=== PATIENT | female | born 1960 | race Caucasian/White ===

== ENCOUNTER 2017-03-02 14:16 | Emergency (ER) | payer OTHER ==
[~2017-03-02] VITALS: Ht 160 cm; Wt 84.8 kg
[~2017-03-02 14:16] MED LIST: BENADRYL25 MG ORAL; BUPROPION HCL100 MG ORAL; IBUPROFEN600 MG ORAL; IBUPROFEN600 MG PO; METFORMIN HCL1000 M1 ORAL; UNOBMED; VICODIN 5-5001 EACH PO
[2017-03-02 14:29] VITALS: BP 134/88
[2017-03-02] MEDS ORDERED: Ketorolac 60mg Inj IM ONE (14:45)
[2017-03-02] MEDS ORDERED: ROBAXIN-750750 MG PO (16:16)
[2017-03-02 16:34] VITALS: BP 127/74
--- NOTE | 2017-03-02 17:40 | Emergency Room Report ---
History of Present Illness General Chief Complaint: Pain Source: Patient, Medical Record Present Illness HPI Patient present with complaints of pain to the left hand with radiation going up to the forearm and the upper arm Patient however also reports that time chest pain from the upper arm down to the hand Patient reports previous neck problems and injuries However the pain in the left arm has worsened over the past several weeks Patient was seen at [facility] recently had neck x-rays obtained patient also shows records indicating receiving morphine At this time she states that she was told at [facility] that they do not accept her insurance In the for the patient presented here for an MRI Denies any weakness has mainly pain 6/10 sharp and tingling Denies any other fall or trauma denies any chest pain or short of breath Allergies: Coded Allergies: No Known Allergies (Unverified , 08/18/12) Patient History Past Medical History: see triage record Pertinent Family History: none Reviewed Nursing Documentation: PMH: Agreed, PSxH: Agreed Nursing Documentation-PMH Hx Diabetes: Yes Review of Systems All Other Systems: negative except mentioned in HPI Physical Exam Vital Signs Date Time Temp Pulse Resp B/P Pulse Ox O2 Delivery O2 Flow Rate FiO2 03/02/17 14:19 98.1 105 16 134/88 99 Room Air Sp02 EP Interpretation: reviewed, normal General Appearance: well appearing, no apparent distress Head: normocephalic, atraumatic Eyes: bilateral eye EOMI, bilateral eye PERRL ENT: hearing grossly normal, normal pharynx, TMs + canals normal, uvula midline Neck: full range of motion, supple, no meningismus, no bony tend Respiratory: lungs clear, normal breath sounds, no rhonchi, no respiratory distress, no retraction, no accessory muscle use Cardiovascular #1: normal peripheral pulses, regular rate, rhythm, no edema, no gallop, no JVD, no murmur Gastrointestinal: normal bowel sounds, non tender, soft, no mass, no organomegaly, non-distended, no guarding, no hernia, no pulsatile mass, no rebound Genitourinary: no CVA tenderness Musculoskeletal: normal inspection - 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, subjectively has sharp shooting pain in the left hand palmar and dorsal aspect left forearm, Neurologic: oriented x3, responsive, 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 nml as tested, motor strength/ tone normal, sensory intact Psychiatric: mood/affect normal Skin: normal color, no rash, warm/dry, palpation normal Lymphatic: normal inspection, no adenopathy Medical Decision Making Diagnostic Impression: Primary Impression: radiculopathy ER Course Given the patient's complaints multiple differentials considered I did obtain ultrasound for evaluation of vascular pathology which was normal EKG and rhythm strip also within normal limits Patient reports that she has had visited by her primary physician previously She is working on an outpatient clearance for MRI At this time there is no emergency criteria meeting MRI criteria The patient requires close outpatient followup Rhythm Strip Diag. Results EP Interpretation: yes Rate: 77 Rhythm: NSR, no PVC's, no ectopy CT/MRI/US Diagnostic Results CT/MRI/US Diagnostic Results : Impression Left upper extremities ultrasound: No acute disease Last Vital Signs Date Time Temp Pulse Resp B/P Pulse Ox O2 Delivery O2 Flow Rate FiO2 03/02/17 16:34 86 16 127/74 99 Room Air 03/02/17 16:24 98.1 Status: improved Disposition: HOME, SELF-CARE Condition: Improved Scripts Methocarbamol* (ROBAXIN-750*) 750 Mg Tablet 750 MG PO TID, #21 TAB 0 Refills Prov: EBONI STEVENSON D.O. 03/02/17 Referrals: LORRAINE MCDONNELL (PCP) Patient Instructions: Cervical Radiculopathy Additional Instructions: Patient is provided with the discharge instructions notified to follow up with primary doctor in the next 2-3 days otherwise return to the er with any worsening symptoms. Please note that this report is being documented using DRAGON technology. This can lead to erroneous entry secondary to incorrect interpretation by the dictating instrument. EBONI STEVENSON D.O. March 02, 2017 17:40
== END 2017-03-02 16:34 | disposition home or self-care (01) ==
LOC: EMR 14:40
DX: M54.10 Radiculopathy, site unspecified (principal); M79.642 Pain in left hand; M79.89 Other specified soft tissue disorders; E11.9 Type 2 diabetes mellitus without complications
CPT/HCPCS: 93005; 93971; 96372; 99284

== ENCOUNTER 2019-01-17 12:32 | Emergency (ER) | payer OTHER ==
[~2019-01-17] VITALS: Ht 160 cm; Wt 86.2 kg
[~2019-01-17 12:32] MED LIST changes: +ROBAXIN-750750 MG PO
[2019-01-17 12:34] VITALS: BP 118/75
--- NOTE | 2019-01-17 12:40 | NUR ---
ED Nurse Note: patient walked into ED patient states she wants to get checked for LEFT earache that's been there for 3 days. patient is alert awake x4, ambulatory steady gait. in no acute distress.
--- NOTE | 2019-01-17 12:55 | Emergency Room Report ---
History of Present Illness General Chief Complaint: Earache Source: Patient Present Illness HPI Patient presents with reports that she had recent dental procedure done on the left back molar area Since then now she has been having increased pain to the left jaw She feels increased discomfort with trying to open and close the area she has spoken to a specialist and primary physician who recommended she should likely have a CT imaging Denies any other obvious trismus denies any neck pain or photophobia Allergies: Coded Allergies: No Known Allergies (Unverified , 08/18/12) Patient History Past Medical History: see triage record Pertinent Family History: none Now: No Reviewed Nursing Documentation: PMH: Agreed; PSxH: Agreed Nursing Documentation-PMH Past Medical History: No History, Except For Hx Diabetes: Yes Review of Systems All Other Systems: negative except mentioned in HPI Physical Exam Vital Signs Date Time Temp Pulse Resp B/P (MAP) Pulse Ox O2 Delivery O2 Flow Rate FiO2 01/17/19 12:34 98.1 72 20 118/75 96 Room Air Sp02 EP Interpretation: reviewed, normal General Appearance: well appearing, no apparent distress Head: normocephalic, atraumatic Eyes: bilateral eye PERRL, bilateral eye EOMI ENT: hearing grossly normal, normal pharynx, other - Some discomfort to the lower angle of the mandible on the left side Neck: supple Respiratory: lungs clear, normal breath sounds Cardiovascular #1: regular rate, rhythm Gastrointestinal: non tender, soft Musculoskeletal: normal inspection, back normal Neurologic: alert, oriented x3 Skin: normal color, no rash Lymphatic: no adenopathy Medical Decision Making Diagnostic Impression: Primary Impression: TMJ capsulitis Additional Impression: Jaw pain ER Course Given the patient's history and presentation and complaints imaging studies was obtained Does not show any obvious acute dislocation or fracture Patient is stable for continued close outpatient follow-up CT/MRI/US Diagnostic Results CT/MRI/US Diagnostic Results : Impression CT facialImpression: No acute abnormality. No findings to explain stated clinical history of jaw pain Last Vital Signs Date Time Temp Pulse Resp B/P (MAP) Pulse Ox O2 Delivery O2 Flow Rate FiO2 01/17/19 12:34 98.1 73 20 118/75 96 Room Air Status: improved Disposition: HOME, SELF-CARE Condition: Improved Additional Instructions: Patient is provided with the discharge instructions notified to follow up with primary doctor in the next 2-3 days otherwise return to the er with any worsening symptoms. Please note that this report is being documented using DRAGON technology. This can lead to erroneous entry secondary to incorrect interpretation by the dictating instrument. Lana Sequeira DO Jan 17, 2019 12:55
--- NOTE | 2019-01-17 13:18 | NUR ---
ED Nurse Note: cassandra went down for CT
--- NOTE | 2019-01-17 13:47 | Diagnostic Imaging Report ---
Indications: Increased pain to the left jaw after recent dental surgery Technique: Spiral images obtained through the facial bones. No IV contrast utilized. Multiplanar reconstructions were generated.Total dose length product 583.07 mGycm. CTDIvol(s) 28.19 mGy. Dose reduction achieved using automated exposure control Comparison: none Findings: There is evidence of prior extraction of all 3 left mandibular molars. No evidence of mandibular osteolytic lesion demonstrated. No evidence of significant adjacent soft tissue swelling. There is evidence of prior extraction of the second and third maxillary molars. No underlying osteolytic lesions. No worrisome sinus opacification. The sinuses are clear. The frontal sinuses are aplastic. The optic globes appear intact. The retroseptal orbits appear intact. The included intracranial structures are unremarkable. The upper aerodigestive tract appears unremarkable. The salivary glands are unremarkable. No facial mass or adenopathy. No evidence of facial fracture. The nasal septum is midline and intact. Impression: No acute abnormality. No findings to explain stated clinical history of jaw pain The CT scanner at [facility] is accredited by the [employer] and the scans are performed using protocols designed to limit radiation exposure to as low as reasonably achievable to attain images of sufficient resolution adequate for diagnostic evaluation.
[2019-01-17 14:14] VITALS: BP 118/75
--- NOTE | 2019-01-17 14:15 | NUR ---
ER DISCHARGE NOTE: Patient is cleared to be discharged per ERMD, pt is aox4, on room air, with stable vital signs. pt was given dc and prescription instructions, pt was able to verbalize understanding, pt id band removed without complications. pt is able to ambulate with steady gait. pt took all belongings.
== END 2019-01-17 14:13 | disposition home or self-care (01) ==
LOC: EMR 12:55
DX: M26.69 Other specified disorders of temporomandibular joint (principal); M77.8 Other enthesopathies, not elsewhere classified; R68.84 Jaw pain; E11.9 Type 2 diabetes mellitus without complications
CPT/HCPCS: 70486; 99284

== ENCOUNTER 2019-07-21 01:24 | Emergency (ER) | payer OTHER ==
[~2019-07-21] VITALS: Ht 165.1 cm; Wt 90.7 kg
--- NOTE | 2019-07-21 01:52 | Emergency Room Report ---
History of Present Illness General Chief Complaint: Abdominal Pain Source: Patient Present Illness HPI 59-year-old female with history of diabetes. She presents with chief complaint of abdominal pain. Onset for the last 3 days. Pain is mostly suprapubic area rating bilaterally. Does have increasing urination and frequency. Also with urgency and hematuria. Saw her doctor yesterday and was prescribed Cipro. Not getting better. No relief with ibuprofen. Pain is 9 out of 10. Worse with urination. No fever chills but no nausea vomiting or diarrhea. Allergies: Coded Allergies: No Known Allergies (Unverified , 08/18/12) Patient History Past Medical History: see triage record, old chart reviewed, DM Past Surgical History: other Pertinent Family History: none Social History: Denies: smoking Last Menstrual Period: na Now: No Immunizations: other Reviewed Nursing Documentation: PMH: Agreed; PSxH: Agreed Nursing Documentation-PMH Hx Diabetes: Yes Review of Systems Eye: Denies: eye pain, blurred vision ENT: Denies: ear pain, nose congestion, throat swelling Respiratory: Denies: cough, shortness of breath Cardiovascular: Denies: chest pain, palpitations Gastrointestinal: Denies: abdominal pain, diarrhea, nausea, vomiting Genitourinary: Reports: dysuria, frequency, hematuria, urgency Musculoskeletal: Denies: back pain, joint pain Skin: Denies: rash Neurological: Denies: headache, numbness Endocrine: Denies: increased thirst, increased urine Hematologic/Lymphatic: Denies: easy bruising All Other Systems: negative except mentioned in HPI Physical Exam Vital Signs Date Time Temp Pulse Resp B/P (MAP) Pulse Ox O2 Delivery O2 Flow Rate FiO2 07/21/19 01:30 98.8 77 16 139/80 (99) 96 Room Air Vitals unremarkable Sp02 EP Interpretation: reviewed, normal General Appearance: well appearing, no apparent distress, alert Head: normocephalic, atraumatic Eyes: bilateral eye PERRL, bilateral eye EOMI ENT: hearing grossly normal, normal pharynx Neck: full range of motion, supple, no meningismus Respiratory: chest non-tender, lungs clear, normal breath sounds Cardiovascular #1: regular rate, rhythm, no murmur Gastrointestinal: normal bowel sounds, no mass, no organomegaly, no bruit, non- distended, tenderness - Suprapubic Musculoskeletal: back normal, gait/station normal, normal range of motion Psychiatric: mood/affect normal Medical Decision Making Diagnostic Impression: Primary Impression: UTI (urinary tract infection) Qualified Codes: N30.01 - Acute cystitis with hematuria Additional Impression: Abdominal pain Qualified Codes: R10.30 - Lower abdominal pain, unspecified ER Course Patient presents with symptoms consistent with UTI/cystitis. She does have hematuria. CT scan is negative for hydronephrosis or kidney stone. She may have passed a small kidney stone. She does have mild prominence of the ureter right greater than left. Appendix is normal. Pain is improved. I gave her Rocephin here. She was taking Cipro but I suspect this resistant to it. Will change antibiotics. CT/MRI/US Diagnostic Results CT/MRI/US Diagnostic Results : Imaging Test Ordered: CT abdomen and pelvis Impression Read by radiologist. No evidence of hydronephrosis or perinephric stranding. No definitive ureteral stone seen. Normal appendix. Last Vital Signs Date Time Temp Pulse Resp B/P (MAP) Pulse Ox O2 Delivery O2 Flow Rate FiO2 07/21/19 01:30 98.8 77 16 139/80 (99) 96 Room Air Status: improved Disposition: HOME, SELF-CARE Condition: Stable Scripts Cephalexin* (KEFLEX*) 500 Mg Capsule 500 MG ORAL TID, #21 CAP Prov: Nayan Hyatt MD 07/21/19 Hydrocodone/Acetaminophen 5-325* (HYDROCODONE/ACETAMINOPHEN 5-325*) 1 Each Tablet 1 TAB ORAL Q6H PRN for For Pain, #20 TAB 0 Refills Prov: Nayan Hyatt MD 07/21/19 Additional Instructions: Increase fluids. Follow-up with your doctor in 2 3 days for recheck if not better. Stop your Cipro. Return if worse. Nayan Hyatt MD Jul 21, 2019 01:52
[2019-07-21] MEDS ORDERED: Morphine Sulfate 4mg/ml Inj (IV USE ONLY) IVP ONE ×2 (02:00→02:30)
--- NOTE | 2019-07-21 02:00 | NUR ---
ED Nurse Note: pt walked in c/o devi flank pain with urination urgency/frequency and burning sensation, pt states she went to her primary doctor and was prescribed cipro 500mg but reports pain is there and she also has nausea along with pain. pt AA&ox4, gcs=15, skin warm and dry, resp even and unlabored on RA, will cont monitor. urine specimen obtained and sent.
[2019-07-21 02:03] LABS: APPEARANCE,URINE SLIGHTLY CLOUDY; BILIRUBIN, URINE NEGATIVE (NEGATIVE); COLOR,URINE PALE YELLOW; GLUCOSE, URINE (UA) NEGATIVE (NEGATIVE); KETONES,URINE NEGATIVE (NEGATIVE); LEUKOCYTE ESTERASE ,URINE 3+ (NEGATIVE); NITRITE,URINE NEGATIVE (NEGATIVE); PH,URINE 8 (4.5-8.0); PROTEIN,URINE 2+ (NEGATIVE); UROBILINOGEN,URINE NORMAL MG/DL (0.0-1.0)
[2019-07-21 02:15] VITALS: BP 121/76
[2019-07-21 02:19] LABS: BASOPHILS % (AUTO) 0.9 % (0.0-2.0); EOSINOPHILS % (AUTO) 0.6 % (0.0-3.0); HEMATOCRIT 37.6 % (37.0-47.0); HEMOGLOBIN 12.4 G/DL (12.0-16.0); LYMPHOCYTES % (AUTO) 23.8 % (20.0-45.0); MEAN CORPUSCULAR VOLUME 83 FL (80-99); MONOCYTES % (AUTO) 9.1 % (1.0-10.0); NEUTROPHILS % (AUTO) 65.6 % (45.0-75.0); PLATELET COUNT 263 K/UL (150-450); RED BLOOD COUNT 4.51 M/UL (4.20-5.40); RED CELL DISTRIBUTION WIDTH 12.2 % (11.6-14.8); WHITE BLOOD COUNT 8.9 K/UL (4.8-10.8)
[2019-07-21] MEDS ORDERED: Morphine Sulfate 4mg/ml Inj (IV USE ONLY) ONE (02:25)
[2019-07-21 02:35] LABS: ANION GAP 10 mmol/L (5-15); BLOOD UREA NITROGEN 16 mg/dL (7-18); CALCIUM 9.1 MG/DL (8.5-10.1); CARBON DIOXIDE 28 MMOL/L (21-32); CHLORIDE 103 MMOL/L (98-107); CREATININE 0.9 MG/DL (0.55-1.30); POTASSIUM 3.7 MMOL/L (3.5-5.1); SODIUM 141 MMOL/L (136-145)
--- NOTE | 2019-07-21 02:39 | NUR ---
ED Nurse Note: left for CT
[2019-07-21] MEDS ORDERED: cefTRIAXone 1 GM in NS 55 ML IVPB ONE (02:45)
--- NOTE | 2019-07-21 02:53 | NUR ---
ED Nurse Note: Back from CT
[2019-07-21] MEDS ORDERED: HYDROmorphone 1mg/ml Carpuject IVP ONE (03:15)
--- NOTE | 2019-07-21 03:26 | Diagnostic Imaging Report ---
Indication: Abdominal pain Technique: Continuous helical transaxial imaging of the abdomen and pelvis was obtained from the lung bases to the pubic symphysis. No intravenous contrast was administered. Coronal 2-D reformats were also obtained. Automatic Exposure Control was utilized. Total Dose length Product (DLP): [address] Dose Index Volume (CTDIvol): 27 mGy Comparison: none Findings: There is mild distention of the bladder with suggestion of mild wall thickening. Correlate clinically cystitis. The appendix is visualized and appears normal. There is a small umbilical hernia containing fat. No nephrolithiasis or hydronephrosis demonstrated. Gallbladder is grossly unremarkable. No free fluid identified. The lung bases are clear. IMPRESSION: Mild thickening of the wall the urinary bladder. Correlate for UTI cystitis. Normal appendix Other incidental findings as above [facility] has communicated the preliminary results to the Emergency Department. Their findings are largely concordant with this report. The CT scanner at [facility] is accredited by the [employer] and the scans are performed using dose optimization techniques as appropriate to a performed exam including Automatic Exposure control.
[2019-07-21] MEDS ORDERED: CEPHALEXIN500 MG ORAL (03:34)
[2019-07-21] MEDS ORDERED: HYDROCODON-ACE1 EA15 ORAL (03:34)
[2019-07-21 04:00] VITALS: BP 126/68
[2019-07-21 04:15] VITALS: BP 126/68
--- NOTE | 2019-07-21 04:15 | NUR ---
ER DISCHARGE NOTE: Patient is cleared to be discharged per ERMD, pt is aox4, on room air, with stable vital signs. pt was given dc and prescription instructions, pt was able to verbalize understanding, pt id band and iv site removed without complications. pt is able to ambulate with steady gait. pt took all belongings.
== END 2019-07-21 04:15 | disposition home or self-care (01) ==
LOC: EMR 01:37
DX: N30.01 Acute cystitis with hematuria (principal); R10.30 Lower abdominal pain, unspecified; E11.9 Type 2 diabetes mellitus without complications
CPT/HCPCS: 36415; 74176; 80048; 81003; 85025; 87086; 87181; 96361; 96365; 96375; J0696; J1170; J2270; J2405; Z7502; 99284

== ENCOUNTER 2019-11-27 18:05 | Emergency (ER) | payer OTHER ==
[~2019-11-27] VITALS: Ht 160 cm; Wt 87.5 kg
[~2019-11-27 18:05] MED LIST changes: +CEPHALEXIN500 MG ORAL; +HYDROCODON-ACE1 EA15 ORAL
--- NOTE | 2019-11-27 19:25 | NUR ---
ED Nurse Note: Pt c/o 07/27 L thumb and hand x2 days, states it is painful to move, denies injury or numbness or tingling, VSS.
[2019-11-27 19:30] VITALS: BP 113/69
--- NOTE | 2019-11-27 19:58 | Emergency Room Report ---
History of Present Illness General Chief Complaint: Upper Extremity Injury Source: Patient Present Illness HPI 59-year-old female presents with left wrist pain after lifting a heavy item yesterday. Pain is rated 7 out of 10, constant, aggravated by movement. She feels that her hand is swollen. She took ibuprofen with mild relief. Denies any other injuries. Allergies: Coded Allergies: No Known Allergies (Unverified , 08/18/12) Patient History Past Medical History: see triage record Last Menstrual Period: na Reviewed Nursing Documentation: PMH: Agreed; PSxH: Agreed Nursing Documentation-PMH Past Medical History: No History, Except For Hx Diabetes: Yes Hx Cancer: Yes - breast cancer 2017 Review of Systems All Other Systems: negative except mentioned in HPI Physical Exam Vital Signs Date Time Temp Pulse Resp B/P (MAP) Pulse Ox O2 Delivery O2 Flow Rate FiO2 11/27/19 18:07 98.6 78 18 113/69 (84) 99 Room Air Sp02 EP Interpretation: reviewed, normal General Appearance: normal inspection, well appearing, no apparent distress Respiratory: lungs clear, normal breath sounds Cardiovascular #1: regular rate, rhythm Cardiovascular #2: 2+ radial (R), 2+ radial (L) Musculoskeletal: other - Mild tenderness over the base of the left first digit and proximal to that. no snuffbox tenderness. FROM. No swelling or obvious deformities. Procedures Splinting Splinting : Consent: Verbal Location: Left wrist Hand-Made Type: plaster Splint: thumb spica Pre-Proc Neuro Vasc Exam: normal Post-Proc Neuro Vasc Exam: normal Patient Tolerated: Well Complications: None Medical Decision Making PA Attestation Dr. Hawk is my supervising physician whom patient management and care has been discussed with. Diagnostic Impression: Primary Impression: Left wrist sprain Qualified Codes: S63.502A - Unspecified sprain of left wrist, initial encounter ER Course Pt. presents to the ED c/o left wrist pain after lifting a heavy item yesterday. Ddx considered but are not limited to fracture, dislocation, sprain, strain. Vital signs: are WNL, pt. is afebrile H&PE are most consistent with sprain, however cannot rule out occult fracture. ORDERS: Left wrist x-ray negative for obvious fracture however cannot rule out occult fracture. ED INTERVENTIONS: Thumb spica splint applied by tech. DISCHARGE: Left wrist x-ray negative for obvious fracture however cannot rule out occult fracture. Therefore patient was placed in a thumb spica splint and advised to follow up outpatient in 3 days for re-evaluation and possible repeat x-rays. Patient verbalizes understanding. At this time pt. is stable for d/c to home. Will provide printed patient care instructions, and any necessary prescriptions. Care plan and follow up instructions have been discussed with the patient prior to discharge. Other X-Ray Diagnostic Results Other X-Ray Diagnostic Results : X-Ray ordered: Left wrist # of Views/Limited Vs Complete: 2 View Indication: Pain EP Interpretation: Yes PA Xray: Interpretation reviewed, by supervising MD, and agrees with findings. Interpretation: no dislocation, no soft tissue swelling, no fractures Impression: Other - No fracture or dislocation. Last Vital Signs Date Time Temp Pulse Resp B/P (MAP) Pulse Ox O2 Delivery O2 Flow Rate FiO2 11/27/19 18:07 98.6 78 18 113/69 (84) 99 Room Air Disposition: HOME, SELF-CARE Condition: Stable Scripts Naproxen* (NAPROXEN*) 500 Mg Tablet 500 MG ORAL TWICE A DAY, #30 TAB Prov: China Clayton PMax 11/27/19 China Clayton Nov 27, 2019 19:58
[2019-11-27] MEDS ORDERED: traMADol 50mg tab ORAL ONE (20:00)
[2019-11-27 20:40] VITALS: BP 113/69
--- NOTE | 2019-11-27 20:40 | NUR ---
ER DISCHARGE NOTE: Patient is cleared to be discharged per ERMD, pt is aox4, on room air, with stable vital signs. pt was given dc and prescription instructions, pt was able to verbalize understanding, pt id band removed. pt is able to ambulate with steady gait. pt took all belongings.
[2019-11-27] MEDS ORDERED: Ketorolac 60mg Inj IM ONE (20:45)
[2019-11-27] MEDS ORDERED: NAPROXEN500 M2 ORAL (20:45)
--- NOTE | 2019-11-28 16:17 | Diagnostic Imaging Report ---
Clinical Indication:Left wrist pain Technique: 3 views of the left wrist Comparison: None Findings: No acute fractures. No dislocations. There is slight irregularity of the distal ulnar cortical surface. Impression: Negative
== END 2019-11-27 21:00 | disposition home or self-care (01) ==
LOC: EMR 21:00
DX: S63.502A Unspecified sprain of left wrist, initial encounter (principal); X50.0XXA Overexertion from strenuous movement or load, initial encounter; Y92.9 Unspecified place or not applicable; E11.9 Type 2 diabetes mellitus without complications; Z85.3 Personal history of malignant neoplasm of breast
CPT/HCPCS: 29125; 73100; 96372; Z7502; 99283

== ENCOUNTER 2020-07-18 14:40 | Outpatient (CLI) | payer MEDICAID ==
[~2020-07-18 14:40] MED LIST changes: +NAPROXEN500 M2 ORAL
--- NOTE | 2020-07-18 15:02 | General Progress Note ---
Subjective ROS Limited/Unobtainable: Yes Allergies: Coded Allergies: IBUPROFEN (Verified Allergy, Mild, 06/09/20) Objective General Appearance: alert EENT: normal ENT inspection Neck: supple Cardiovascular: normal rate Respiratory/Chest: decreased breath sounds Abdomen: normal bowel sounds, non tender, soft Extremities: non-tender Assessment/Plan Assessment/Plan: colon cancer s/p surg fu oncology plan repeat colonoscopy 6 months Drake Joya MD Jul 18, 2020 15:02
== END 2020-07-18 16:40 | disposition home or self-care (01) ==
LOC: PAN 14:40
DX: C18.9 Malignant neoplasm of colon, unspecified (principal); Z88.6 Allergy status to analgesic agent
CPT/HCPCS: G0463

== ENCOUNTER 2020-11-19 09:56 | Outpatient (CLI) | payer MEDICAID ==
--- NOTE | 2020-11-20 15:24 | General Progress Note ---
Subjective ROS Limited/Unobtainable: Yes Allergies: Coded Allergies: IBUPROFEN (Verified Allergy, Mild, 06/09/20) Objective General Appearance: alert EENT: normal ENT inspection Neck: supple Cardiovascular: normal rate Respiratory/Chest: decreased breath sounds Abdomen: normal bowel sounds, non tender, soft Extremities: non-tender Assessment/Plan Assessment/Plan: Assessment/Plan Assessment/Plan: colon cancer s/p surg fu oncology plan repeat colonoscopy Drake Joya MD Nov 20, 2020 15:24
== END 2020-11-19 15:16 | disposition home or self-care (01) ==
LOC: PAN 09:56
DX: C18.9 Malignant neoplasm of colon, unspecified (principal); Z88.6 Allergy status to analgesic agent
CPT/HCPCS: 99212